=== PATIENT | female | born 1965 | race Caucasian/White ===

== ENCOUNTER 2019-09-13 18:18 | Emergency (ER) | payer BC, OTHER ==
[~2019-09-13] VITALS: Ht 172.7 cm; Wt 65.8 kg
[2019-09-13 18:22] VITALS: BP 109/76
[2019-09-13] MEDS ORDERED: IBUPROFEN 600 MG TABLET PO ONE ×2 (19:00→19:07)
== END 2019-09-13 19:17 | disposition home or self-care (01) ==
LOC: ER 18:24
DX: S39.012A Strain of muscle, fascia and tendon of lower back, initial encounter (principal); S16.1XXA Strain of muscle, fascia and tendon at neck level, initial encounter; V49.49XA Driver injured in collision with other motor vehicles in traffic accident, initial encounter; Y93.89 Activity, other specified; Y92.488 Other paved roadways as the place of occurrence of the external cause; Y99.8 Other external cause status